=== PATIENT | male | born 1975 | race Caucasian/White ===

== ENCOUNTER 2024-10-30 09:16 | Day surgery (SDC) | payer OTHER ==
--- NOTE | 2024-10-29 22:38 | HP ---
HISTORY OF PRESENT ILLNESS: No prior colonoscopy. No bloody stools. Some loose stools at times. No new pain. Family history negative for colon cancer. PAST MEDICAL HISTORY: Denies any current illnesses. HOME MEDICATIONS: No medications on a regular basis. ALLERGIES: No known drug allergies. PAST SURGICAL HISTORY: Denies past surgery. SOCIAL HISTORY: One pack per day smoker. Denies any alcohol abuse. FAMILY HISTORY: Father had an aneurysm. Negative for colon cancer. REVIEW OF SYSTEMS: Twelve systems reviewed. No chest pain or palpitations. Other systems negative or noncontributory as above and per preadmission questionnaire. PHYSICAL EXAMINATION: GENERAL: Height 6 feet 1 inch. BMI 32.98. No acute distress. HEENT: Sclerae nonicteric. NECK: No JVD. CHEST: Clear. Equal excursion, nonlabored breathing. CARDIOVASCULAR: Regular rate and rhythm. ABDOMEN: Soft. SKIN: Dry. EXTREMITIES: No cyanosis or edema. NEUROLOGIC: Alert and oriented. Moving extremities symmetrically. PSYCHIATRIC: Appropriate mood and affect. RECTAL: Deferred until time of endoscopy exam. IMPRESSION: Need for screening colonoscopy. Feel patient is a candidate. Shown the risk sheet, explained procedure in detail, not limited to, bleeding; infection; risk of bowel injury or perforation; risk of missed or nondiagnosis or incomplete exam possibly requiring barium enema or other procedure; risk of anesthesia and sedation; risk of bowel prep but not limited to. Consent obtained. We will proceed with outpatient screening colonoscopy under MAC anesthesia.
[2024-10-30 09:55] VITALS: RESP 18
[2024-10-30] MEDS ORDERED: DIPRIVAN 200 MG/20 ML IV ONE ×2 (12:13→12:39)
[2024-10-30 13:02] VITALS: O2SAT 98
[2024-10-30 13:13] VITALS: BP 117/77; PULSE 59; TEMP 97.8
--- NOTE | 2024-10-31 14:57 | OP ---
SURGERY DATE/TIME: 10/30/2024 [id number] PREOPERATIVE DIAGNOSIS: Needs screening colonoscopy. POSTOPERATIVE DIAGNOSES: 1) Patchy area of inflammation in the sigmoid colon. 2) Raised lesion in the sigmoid colon. 3) Sigmoid colon polyps x4. 4) Two proximal rectal polyps. 5) Two small diverticula in the left colon. 6) ASA class 2. 7) Withdrawal time was approximately 12 minutes. PROCEDURES: 1) Colonoscopy to cecum, cold biopsy of patchy area of inflammation in the sigmoid colon. 2) Hot biopsy of small vague raised area, raised lesion versus early hyperplastic lesion in the sigmoid colon. 3) Hot biopsy with polypectomy. 4) Early polyps versus hyperplastic lesion in the sigmoid colon x4. 5) Hot biopsy piecemeal polypectomy of an approximately 3.5 mm, smooth, and the larger polyp in the proximal rectum, hot biopsy piecemeal polypectomy. Good hemostasis noted. 6) Hot snare polypectomy of approximately 4 to 5 mm polyps that appear to be more adenomatous in the proximal rectum that was removed with hot snare polypectomy. Good hemostasis noted. SURGEON: Charlie Melgar MD. DESCRIPTION OF PROCEDURE AND FINDINGS: The patient was taken to the endoscopy room. MAC anesthesia was induced. After official time-out, no disagreement with planned procedure. Digital rectal exam did not reveal any rectal masses. Videocolonoscope inserted and passed up through a tortuous sigmoid, descending, transverse, and ascending colon, around to the cecum. Appendiceal orifice was not well visualized, photo documented. Prep overall was fair, a little bit of liquidy stool throughout the colon, limiting exam for small lesions. The scope was carefully withdrawn over the next 12 minutes or so. Again, the prep overall limited the exam for small lesions more proximally. The scope was carefully withdrawn. A small raised lesion in the sigmoid colon was removed with hot biopsy forceps, whether this was an early polyp or hyperplasia mucosa. There was patchy area of inflammation that was biopsied with cold biopsy and forceps to evaluate for microscopic colitis. Scope was then pulled back. There were 4 small early polyps versus hyperplastic lesion removed with hot biopsy forceps. Scope pulled back to the proximal rectum. Then, 3.5 mm polyp smooth was removed in hot biopsy piecemeal fashion. Good hemostasis noted. There was a 4 to 5 mm, which seemed to be more adenomatous type polyp, that was removed with hot snare polypectomy in the proximal rectum. Good hemostasis was noted. Otherwise, he has some small diverticula in the left colon. There are no signs of any large polyps, masses, or obstructing lesions. He tolerated the procedure well. There were no immediate complications. Went out to the waiting area to look for family and discuss findings.
== END 2024-10-30 13:39 | disposition home or self-care (01) ==
LOC: SDC 09:16
PROVIDERS: ATTEND Surgery
DX: Z12.11 Encounter for screening for malignant neoplasm of colon (principal); K62.1 Rectal polyp; K57.30 Diverticulosis of large intestine without perforation or abscess without bleeding; D12.5 Benign neoplasm of sigmoid colon
CPT/HCPCS: J2704